=== PATIENT | female | born 1970 | race Caucasian/White ===

== ENCOUNTER 2019-04-22 03:07 | Emergency (ER) | payer SELFPAY ==
[~2019-04-22] VITALS: Ht 160 cm; Wt 116.8 kg
[2019-04-22 04:13] LABS: HEMATOCRIT 35.6 % (37.0-47.0); IMMATURE GRANULOCYTES 0.2 % (0.0-5.0); MEAN CELL VOLUME 80.5 fL CALC (80.0-100.0); MEAN CORPUSCULAR HGB 24.9 pG CALC (26.0-32.0); MEAN CORPUSCULAR HGB CONC 30.9 g/L CALC (32.0-36.0); NEUT# 6.23 thou/uL (2.00-7.15); RED BLOOD COUNT 4.42 mill/uL (4.20-5.60); RED CELL DISTRI WIDTH 17.2 % (11.5-15.5)
[2019-04-22 04:19] LABS: URINE BILIRUBIN - DIPSTICK NEGATIVE (NEGATIVE); URINE BLOOD DIPSTICK LARGE (NEGATIVE); URINE COLOR YELLOW; URINE GLUCOSE - DIPSTICK NEGATIVE (NEGATIVE); URINE KETONE NEGATIVE (NEGATIVE); URINE LEUK ESTERASE NEGATIVE (NEGATIVE); URINE NITRITE - DIPSTICK NEGATIVE (Negative); URINE PH 6.5 (4.5-8.0); URINE PROTEIN - DIPSTICK NEGATIVE (NEG-TRACE); URINE UROBILINOGEN - DIPSTICK 0.2 E.U./dL (0.2)
[2019-04-22 04:20] LABS: ALBUMIN 4.7 g/dL (3.2-5.0); ALKALINE PHOSPHATASE 176 u/l (38-126); AMYLASE < 30 u/l (30-110); ANION GAP 16 (6-22 (CALC)); BILIRUBIN, TOTAL 0.4 mg/dL (0.0-1.4); BUN 11 mg/dL (7-17); BUN/CREATININE RATIO 12 (12-20 (CALC)); CARBON DIOXIDE 19 mmol/l (22-30); CHLORIDE 106 mmol/l (95-108); CREATININE 0.9 mg/dL (0.5-1.0); GFR > 60 ML/MIN (>=60 (CALC)); GFR FOR AFR.AMER. > 60 ML/MIN (>=60 (CALC)); LIPASE 89 u/l (23-300); SGOT/AST 92 u/l (14-36); SODIUM 138 mmol/l (137-146); TOTAL PROTEIN 7.9 g/dL (6.3-8.2)
[2019-04-22 04:25] LABS: URINE BACTERIA FEW hpf; URINE SQUAMOUS EPITHELIAL CELL FEW EPI/hpf (0-FEW)
[2019-04-22] MEDS ORDERED: TAMSULOSIN0.4 MG PO (06:13)
[2019-04-22] MEDS ORDERED: K-DUR/KLOR-CON20 MEQ PO (06:13)
[2019-04-22] MEDS ORDERED: LASIX20 MG PO (06:13)
[2019-04-22] MEDS ORDERED: LORTAB 5/3255 MG PO (06:13)
[2019-04-22 07:00] VITALS: BP 152/74
== END 2019-04-22 07:00 | disposition home or self-care (01) | DRG 694 ==
LOC: ED 03:07
PROVIDERS: Family Medicine
DX: N20.0 Calculus of kidney (principal); N23 Unspecified renal colic; E83.52 Hypercalcemia; K76.0 Fatty (change of) liver, not elsewhere classified

== ENCOUNTER 2022-01-19 17:51 | Inpatient (IN) | payer SELFPAY ==
[~2022-01-19] VITALS: Ht 160 cm; Wt 113.0 kg
[~2022-01-19 17:51] MED LIST: K-DUR/KLOR-CON20 MEQ PO; LASIX20 MG PO; LORTAB 5/3255 MG PO; TAMSULOSIN0.4 MG PO
[2022-01-19 18:37] LABS: HCG SERUM/URINE (NEG/POS) NEGATIVE (NEGATIVE)
[2022-01-19 18:44] LABS: BILIRUBIN, TOTAL 1.4 mg/dL (0.0-1.4); CREATININE 4.6 mg/dL (0.5-1.0); POTASSIUM 4.4 mmol/l (3.5-5.1)
[2022-01-19 18:45] LABS: HEMATOCRIT 35.8 % (37.0-47.0); HEMOGLOBIN 12.2 g/dl (12.0-16.0); IMMATURE GRANULOCYTES 1.7 % (0.0-5.0); MEAN CELL VOLUME 82.7 fL CALC (80.0-100.0); MEAN CORPUSCULAR HGB 28.2 pG CALC (26.0-32.0); MEAN CORPUSCULAR HGB CONC 34.1 g/dL CAL (32.0-36.0); NEUT# 8.56 thou/uL (2.00-7.15); RED BLOOD COUNT 4.33 mill/uL (4.20-5.60); RED CELL DISTRI WIDTH 15.2 % (11.5-15.5)
[2022-01-19 18:59] LABS: URINE BILIRUBIN - DIPSTICK NEGATIVE (NEGATIVE); URINE BLOOD DIPSTICK TRACE-INTACT (NEGATIVE); URINE COLOR YELLOW; URINE GLUCOSE - DIPSTICK NEGATIVE (NEGATIVE); URINE KETONE NEGATIVE (NEGATIVE); URINE LEUK ESTERASE TRACE (NEGATIVE); URINE PH 5.5 (4.5-8.0); URINE PROTEIN - DIPSTICK NEGATIVE (NEG-TRACE); URINE SPECIFIC GRAVITY <=1.005; URINE UROBILINOGEN - DIPSTICK 0.2 E.U./dL (0.2)
[2022-01-19 19:01] LABS: URINE NITRITE - DIPSTICK NEGATIVE (Negative)
--- NOTE | 2022-01-19 19:07 | NUR ---
ASSUMED CARE OF PT FROM VU DE LA ROSA. PT IN ROOM AND STABLE. PT CURRENTLY BEING TAKEN TO CT. REMOVED [place]. WILL CONTINUE TO MONITOR UPON RETURN.
--- NOTE | 2022-01-19 19:09 | NUR ---
REPORT GIVEN TO MAYO DE LA ROSA.
[2022-01-19 21:32] VITALS: BP 127/66
[2022-01-20] VITALS (16 sets, daily range): BP systolic 79–177; BP diastolic 21–82
--- NOTE | 2022-01-20 | NUR ---
RECEIVED REPORT FROM NURSE ED NURSE MAYO, PATIENT TRASNPORTED VIA BED, ARRIVED TO FLOOR AT 2127, C/O OFLEFT FOOT PAIN PS 9/10, ALLERGIES CLARIFIED TO PATIENT, PATIENT STATED NOT ALLERGIC TO CODEINE HAS TAKEN HYDROCODONE BEFORE AND GOT CONFUSED WITH THE NOVOCAIN WHICH CAUSES FACIAL SWELLING, MD MADE AWARE ORDERD LORTAB PRM, PATIENT FX OF LEFT TOES, PLACED ON BOOT, HAS ONGOING IV NS @ 125 CC/HR INFUSING WELL, BED SIDE COMODE IN PLACE, REPEAT LACTIC OBTAINED TRENDING DOWN, CALL LIGHT IN REACH.
--- NOTE | 2022-01-20 04:30 | NUR ---
PATIENT AWAKE AT THIS TIME, TECH IN ROOM, BREATHING UNLABORED NO DISCOMFORTS NOTED CALL LIGHT IN REACH.
[2022-01-20 05:30] LABS: HEMATOCRIT 30.7 % (37.0-47.0); HEMOGLOBIN 10.4 g/dl (12.0-16.0); MEAN CELL VOLUME 83.7 fL CALC (80.0-100.0); MEAN CORPUSCULAR HGB 28.3 pG CALC (26.0-32.0); MEAN CORPUSCULAR HGB CONC 33.9 g/dL CAL (32.0-36.0); RED BLOOD COUNT 3.67 mill/uL (4.20-5.60); RED CELL DISTRI WIDTH 15.4 % (11.5-15.5)
[2022-01-20 05:44] LABS: ALBUMIN 2.6 g/dL (3.2-5.0); BILIRUBIN, TOTAL 0.9 mg/dL (0.0-1.4); CREATININE 4.5 mg/dL (0.5-1.0); MAGNESIUM 1.9 mg/dL (1.6-2.3); POTASSIUM 4.7 mmol/l (3.5-5.1); TOTAL PROTEIN 5.4 g/dL (6.3-8.2)
--- NOTE | 2022-01-20 06:18 | NUR ---
RECEIVE PHONE CALL FROM LAB PATIENT BUN CRITICALLY HIGH 97, DR VAUGHN MADE AWARE.
--- NOTE | 2022-01-20 07:39 | NUR ---
PATIENT RESTING IN ROOM, ALERT AND ORIENTATED X3. BREATHING APPEARS EVEN AND NON LABORED, NO DISTRESS NOTED. LUNG SOUNDS CLEAR. UPPER EXTREMITIY STRENGTH IS STRONG, NO DRIFT. BOWEL SOUNDS ACTIVE IN ALL QUADRANTS, NO PAIN REPORTED WHEN PRESSURE IS APPLIED. LOWER EXTREMITIES ARE STRONG, NO DRIFT. PATIENT STATED LEFT FOOT PAIN IS MANAGEABLE AND SHE DOESNT WANT PAIN MEDICATION. LEFT FOOT IS SWOLLEN AND PULSE IS WEAKER. IV RUNNING NORMAL SALINE AT 100ML/HR. PT DENIES OF ANY NEEDS. ALL SAFETY PRECAUTIONS IN PLACE AT THIS TIME.
--- NOTE | 2022-01-20 09:24 | NUR ---
CALLED DR. MCDONALD OFFICE AT [phone] SPOKE TO JOSEPH. GAVE INFORMATION REGARDING THIS PT. STATED SHE WILL GIVE HIM THE MESSAGE.
--- NOTE | 2022-01-20 10:05 | NUR ---
CENTER MACHINE SET UP OPERATOR CALLED TO ROOM. PT STATES SHE IS COLD. RESPIRATIONS LABORED. VITALS OBTAINED. TEMP 99.6,BP 177/82, HR 104, O2 96% ON ROOM AIR.PT UNABLE TO KEEP STILL. PT DENIES OF ANY PAINS. PT STATES THIS ACTIVITY HAPPENED YESTURDAY. JUWAN JUAREZ AT BEDSIDE. BOLUS, MORPHINE AND TYLENOL TO BE ADMINISTERED PER ORDERS. CENTER MACHINE SET UP OPERATOR TO REMAIN AT BEDSIDE
--- NOTE | 2022-01-20 10:38 | NUR ---
EKG COMPLETED. REASSESSMENT OF VITALS. BP 105/63, HR 140, O2 96% ON ROOM AIR. RESPIRATIONS SHALLOW BUT IMPROVED. PT STATES SHE FEELS BETTER. JUWAN JUAREZ INFORMED OF EKG AND VITALS. NO NEW ORDERS RECIEVED.
--- NOTE | 2022-01-20 11:57 | NUR ---
PT RESTING IN BED, IV FLUIDS BOLUS INFUSING. RESPIRATIONS EVEN AND NONLABORED AT THIS TIME. PT APPEARS MORE RELAXED. BLADDER SCAN COMPLETED AND RESULTED 157.PT NPO AT THIS TIME FOR SCHEDULED SURGERY AT 1500. PT VERBALIZED UNDERSTANDING. DENIES OF ANY NEEDS AT THIS TIME. CALL LIGHT IN REACH, SAFETY PRECAUTIONS IN PLACE.
--- NOTE | 2022-01-20 14:39 | NUR ---
PT EDUCATED ON DISCHARGE INSTRUCTIONS. VERBALIZED UNDERSTANDING.
--- NOTE | 2022-01-20 15:10 | NUR ---
PT TRANSFERRED TO OR AT THIS TIME.
--- NOTE | 2022-01-20 17:00 | NUR ---
BED SIDE REPORT RECIEVED FROM OR NURSES. PT ALERT AND ORIENTATED X3. VITALS STABLE. RESPIRATIONS REMAIN EVEN AND UNLABORED, O2 VIA NASAL CANULA AT 3L. IV SITE PATENT INFUSING WITH IV FLUIDS PER ORDER. SCD IN PLACE. PATIENT DENIES OF ANY NEEDS AT THIS TIME. ALL SAFETY PRECAUTIONS IN PLACE AT THIS PLACE.
--- NOTE | 2022-01-20 20:00 | NUR ---
PT IN BED RESTING, PT VERY DROWSY FROM PROCEDURE TODAY, PT ALERT AND ORIENTED X3, IV FLUID AT125, NO SIGNS OF DISTRESS, PT BED IN LOW POSITION, PT STATES NO PAIN, CALL LIGHT IN REACH
--- NOTE | 2022-01-20 22:00 | NUR ---
PT VOIDED 900, AT 2130 AND BLADDER SCAN SHOWED 187 AT 2200.
[2022-01-21] VITALS (7 sets, daily range): BP systolic 98–154; BP diastolic 47–87
[2022-01-21 05:48] LABS: HEMATOCRIT 29.9 % (37.0-47.0); HEMOGLOBIN 9.9 g/dl (12.0-16.0); IMMATURE GRANULOCYTES 0.8 % (0.0-5.0); MEAN CELL VOLUME 84.9 fL CALC (80.0-100.0); MEAN CORPUSCULAR HGB 28.1 pG CALC (26.0-32.0); MEAN CORPUSCULAR HGB CONC 33.1 g/dL CAL (32.0-36.0); NEUT# 8.7 thou/uL (2.00-7.15); RED BLOOD COUNT 3.52 mill/uL (4.20-5.60)
[2022-01-21 06:04] LABS: CREATININE 3.7 mg/dL (0.5-1.0); POTASSIUM 4.5 mmol/l (3.5-5.1)
--- NOTE | 2022-01-21 06:59 | NUR ---
notified nurse about blood pressure.
--- NOTE | 2022-01-21 07:10 | NUR ---
REPORT RECEIVED FROM NAVARRORN
--- NOTE | 2022-01-21 08:25 | NUR ---
PT RESTING IN SEMI FOWLERS POSITION, A&O X3;ASSESSMENT COMPLETED;PT DENIES ANY CURRENT PAIN OR DISCOMFORTS,PAIN SCALE AND REPORTING EDUCATED;RESPIRATIONS EVEN AND UNLABORED ON RA,CLEAR LUNG SOUNDS;ABDOMEN SOFT ON PALPATION AND ACTIVE IN ALL 4 QUADRANTS;LAST BM 01/19/22;STRONG PEDAL PULSES;SKIN INTACT;#20G TO LW INFUSING SODIUM BICARD @ 75ML/HR PER ORDER,SITE APPEARS HEALTHY;PT DENIES ANY ADDITIONAL NEEDS AND IS ENCOURAGED TO CALL FOR ASSISTANCE IF NEEDED;CALL LIGHT IN REACH;FREQUENT ROUNDS MADE.
--- NOTE | 2022-01-21 09:08 | NUR ---
JUWAN DAY AT BEDSIDE DISCUSSING POC WITH PT.
[2022-01-21 10:05] LABS: URINE BILIRUBIN - DIPSTICK NEGATIVE (NEGATIVE); URINE BLOOD DIPSTICK LARGE (NEGATIVE); URINE CLARITY SL CLOUDY; URINE COLOR YELLOW; URINE GLUCOSE - DIPSTICK NEGATIVE (NEGATIVE); URINE KETONE NEGATIVE (NEGATIVE); URINE LEUK ESTERASE SMALL (Negative); URINE NITRITE - DIPSTICK NEGATIVE (Negative); URINE PROTEIN - DIPSTICK TRACE mg/dL (NEG-TRACE); URINE UROBILINOGEN - DIPSTICK 0.2 E.U./dL (0.2)
[2022-01-21 10:21] LABS: URINE BACTERIA FEW hpf
--- NOTE | 2022-01-21 10:40 | NUR ---
AT BEDSIDE DISCUSSING POC WITH PT.
--- NOTE | 2022-01-21 11:50 | NUR ---
PT APPEARS TO BE SLEEPING IN SUPINE POSITION;RESPIRATIONS EVEN AND UNLABORED ON RA;NO S/S OF DISTRESS NOTED;IV SITE PATENT INFUSING WITH EASE;ALL SAFETY PRECAUTIONS REMAIN IN PLACE WITH BED IN THE LOWEST POSITION AND CALL LIGHT IN REACH;FREQUENT ROUNDS MADE.
--- NOTE | 2022-01-21 16:40 | NUR ---
PT RESTING IN SEMI FOWLERS POSITION;RESPIRATIONS EVEN AND UNLABORED ON RA;PT DENIES ANY CURRENT PAIN OR DISCOMFORTS;PT ALSO REPORTS X2 LOOSE STOOLS;#20G TO LW INFUSING SODIUM BICARB WITH EASE;PT ENCOURAGED TO CALL FOR ASSISTANCE IF NEEDED;CALL LIGHT IN REACH;FREQUENT ROUNDS MADE.
--- NOTE | 2022-01-21 20:14 | NUR ---
PATIENT SITTING UP IN BED. NO DISTRESS NOTED. FRIEND AT BEDSIDE. AOX3. C/O OF SOME DICOMFORT IN L FOOT BUT DENIES NEEDING ANY PAIN MEDICATION. ASSESSMENT COMPLETED. FALL PRECAUTIONS IN PLACE. CALL PERRIN WITHIN REACH.
[2022-01-22 04:11] VITALS: BP 146/88
[2022-01-22 06:04] LABS: HEMATOCRIT 30.6 % (37.0-47.0); HEMOGLOBIN 10.4 g/dl (12.0-16.0); IMMATURE GRANULOCYTES 2.1 % (0.0-5.0); MEAN CELL VOLUME 82.7 fL CALC (80.0-100.0); MEAN CORPUSCULAR HGB 28.1 pG CALC (26.0-32.0); NEUT# 6.58 thou/uL (2.00-7.15); RED BLOOD COUNT 3.7 mill/uL (4.20-5.60); RED CELL DISTRI WIDTH 15.7 % (11.5-15.5)
[2022-01-22 06:20] VITALS: BP 150/97
[2022-01-22 06:40] LABS: ALBUMIN 2.9 g/dL (3.2-5.0); MAGNESIUM 1.5 mg/dL (1.6-2.3); POTASSIUM 3.9 mmol/l (3.5-5.1); TOTAL PROTEIN 6.2 g/dL (6.3-8.2)
[2022-01-22 06:41] LABS: BILIRUBIN, TOTAL 0.5 mg/dL (0.0-1.4); CREATININE 2.5 mg/dL (0.5-1.0)
--- NOTE | 2022-01-22 11:59 | NUR ---
VERIFIED THAT IV SOLUTION IS COMPATIBLE WITH MAG SUL IV SOLUTION PROMOTIONS ASSOCIATE: SUSHMA
[2022-01-22] MEDS ORDERED: VANTIN200 M1 PO (12:09)
[2022-01-22 12:15] VITALS: BP 145/85
== END 2022-01-22 15:33 | disposition home or self-care (01) | DRG 660 ==
LOC: ED 17:51 → ED-I 20:12 → ED 20:22 → MS2 20:23
PROVIDERS: Family Medicine; Nurse Practitioner; ADMIT Internal Medicine; ATTEND Internal Medicine
PROC: 0T768DZ Dilation of Right Ureter with Intraluminal Device, Via Natural or Artificial Opening Endoscopic (ICD-10-PCS; principal; 2022-01-20)
PROC: BT1DYZZ Fluoroscopy of Right Kidney, Ureter and Bladder using Other Contrast (ICD-10-PCS; 2022-01-20)
DX: N13.6 Pyonephrosis (principal); Z68.41 Body mass index [BMI] 40.0-44.9, adult; E87.1 Hypo-osmolality and hyponatremia; E87.2 Acidosis; E86.0 Dehydration; E83.52 Hypercalcemia; E86.9 Volume depletion, unspecified; N17.9 Acute kidney failure, unspecified; N26.1 Atrophy of kidney (terminal); E66.9 Obesity, unspecified; S92.322D Displaced fracture of second metatarsal bone, left foot, subsequent encounter for fracture with routine healing; S92.332D Displaced fracture of third metatarsal bone, left foot, subsequent encounter for fracture with routine healing; S92.342D Displaced fracture of fourth metatarsal bone, left foot, subsequent encounter for fracture with routine healing; X58.XXXD Exposure to other specified factors, subsequent encounter; Z86.16 Personal history of COVID-19; Z87.442 Personal history of urinary calculi; Z20.822 Contact with and (suspected) exposure to COVID-19
CPT/HCPCS: C1769; J3475; Q9967

== ENCOUNTER 2022-03-13 07:04 | Day surgery (SDC) | payer SELFPAY ==
[~2022-03-13] VITALS: Ht 160 cm; Wt 104.3 kg
[~2022-03-13 07:04] MED LIST changes: +VANTIN200 M1 PO
[2022-03-13 09:43] VITALS: BP 133/78
== END 2022-03-13 09:55 | disposition home or self-care (01) | DRG 694 ==
LOC: ORM 07:04
PROVIDERS: ATTEND Urology
PROC: 0TP98DZ Removal of Intraluminal Device from Ureter, Via Natural or Artificial Opening Endoscopic (ICD-10-PCS; principal; 2022-03-13)
DX: N20.1 Calculus of ureter (principal); N26.1 Atrophy of kidney (terminal); E66.9 Obesity, unspecified; Z86.16 Personal history of COVID-19
CPT/HCPCS: C1769; J0131; J1956; Q9967